=== PATIENT | female | born 1935 | race Two or more races ===

== ENCOUNTER 2024-09-17 08:42 | Outpatient (CLI) | payer MEDICAID ==
[2024-09-17 09:07] LABS: Hemoglobin 9.2 g/dL (12.2-16.2)
[2024-09-17 09:09] LABS: Hematocrit 29.7 % (36.0-46.0); Mean Corpuscular Hemoglobin 20.5 pg (28.0-32.0); Mean Corpuscular Volume 66.1 fL (80.0-100.0); Nucleated Red Blood Cells % 0.0 %
[2024-09-17 09:30] LABS: Alanine Aminotransferase 10 U/L (7-40); Alkaline Phosphatase 107 U/L (46-116); Anion Gap 10 (5-15); BUN/Creatinine Ratio 14.5 (10.0-20.0); Blood Urea Nitrogen 12 mg/dL (9-23); Calcium 9.8 mg/dL (8.7-10.4); Carbon Dioxide 25 mmol/L (20-31); Chloride 107 mmol/L (98-107); Glucose 101 mg/dL (74-106); Potassium 3.8 mmol/L (3.5-5.1); Sodium 142 mmol/L (136-145); Total Protein 7.3 g/dL (5.7-8.2); Triglycerides 114 mg/dL (< 150)
[2024-09-17 09:31] LABS: Albumin 4.2 g/dL (3.2-4.8)
[2024-09-17 09:32] LABS: Bilirubin, Total 0.4 mg/dL (0.2-1.0)
[2024-09-17 09:35] LABS: Cholesterol 203 mg/dL (< 200); HDL Cholesterol 36 mg/dL (40-59)
[2024-09-17 10:18] LABS: Free T4 (Free Thyroxine) 1.19 ng/dL (0.89-1.76)
[2024-09-17 10:30] LABS: Urine Protein, UAD Negative (Negative)
[2024-09-17 11:59] LABS: Ovalocytes MODERATE; Tear Drop Cells FEW
[2024-09-17 12:00] LABS: Anisocytosis Slight
== END 2024-09-17 17:00 | disposition home or self-care (01) ==
LOC: LAB 08:42
PROVIDERS: ATTEND Internal Medicine
DX: I10 Essential (primary) hypertension (principal); Z00.00 Encounter for general adult medical examination without abnormal findings
CPT/HCPCS: 36415; 80053; 80061; 81001; 82306; 82607; 83036; 84439; 84443; 85025; 87086

== ENCOUNTER 2024-10-16 09:02 | Outpatient (CLI) | payer MEDICAID ==
[2024-10-16 10:17] LABS: Total Iron Binding Capacity 345.0 ug/dL (250-425)
[2024-10-16 10:19] LABS: Iron 19.0 ug/dL (50-170)
== END 2024-10-16 17:00 | disposition home or self-care (01) ==
LOC: LAB 09:02
PROVIDERS: ATTEND Internal Medicine
DX: D50.0 Iron deficiency anemia secondary to blood loss (chronic) (principal)
CPT/HCPCS: 36415; 82274; 83540; 83550; 83615; 85045